=== PATIENT | male | born 1940 | race Caucasian/White ===

== ENCOUNTER → 2016-12-22 | Outpatient (CLI) | payer MEDICARE, OTHER | END | disposition home or self-care (01) | LOC: LABWHC1 09:54 | PROVIDERS: ATTEND Family Medicine | DX: I10 Essential (primary) hypertension (principal) | CPT/HCPCS: 36415; 93005 ==

== ENCOUNTER → 2018-06-09 | Outpatient (CLI) | payer MEDICARE ==
--- NOTE | 2018-06-09 07:56 | US ---
EXAMINATION TYPE: US duplex aorta DATE OF EXAM: 06/09/2018 COMPARISON: NONE CLINICAL HISTORY: 78-year-old male Z13.9 Encounter for screening, unspecified. Screening, pt has no c omplaints at this time TECHNIQUE: Multiple sonographic images of the abdominal aorta are obtained. FINDINGS: EXAM MEASUREMENTS: Abdominal Aorta: Proximal: 2.5 x 2.7 cm Mid: 2.2 x 1.9 cm Distal: 1.9 x 2.0 cm Bifurcation: ALISON: 1.2 x 1.0 cm SHELDON: 1.4 x 1.0 cm Mild atherosclerotic irregularity throughout. IMPRESSION: Ectatic upper abdominal aorta at 2.7 cm. Otherwise, no evidence for AAA.
== END | disposition home or self-care (01) ==
LOC: RADUSWWP 06:53
PROVIDERS: ATTEND Family Medicine
DX: I77.811 Abdominal aortic ectasia (principal)
CPT/HCPCS: 93979

== ENCOUNTER → 2018-09-27 | Outpatient (CLI) | payer MEDICARE ==
--- NOTE | 2018-09-27 11:35 | XR ---
EXAMINATION TYPE: XR chest 2V DATE OF EXAM: 09/27/2018 COMPARISON: 07/26/2014 TECHNIQUE: PA and lateral views submitted. HISTORY: Postsurgical FINDINGS: The lungs are clear and there is no pneumothorax, pleural effusion, or focal pneumonia. Bilateral d ensities overlying the chest are similar to the prior exam compatible with pleural plaques. No overt failure. Elevation the right hemidiaphragm is stable. Hypertrophic change of the spine. IMPRESSION: 1. No acute process. Correlate for asbestos related disease.
== END | disposition home or self-care (01) ==
LOC: RADXRMAIN 11:04
PROVIDERS: ATTEND Family Medicine
DX: J92.0 Pleural plaque with presence of asbestos (principal)
CPT/HCPCS: 71046